=== PATIENT | male | born 1965 | race Caucasian/White ===

== ENCOUNTER 2019-05-18 00:30 | Emergency (ER) | payer BC ==
[2019-05-18] MEDS ORDERED: Cephalexin 500 MG Cap PO ONE (01:00)
--- NOTE | 2019-05-18 01:12 | EDM.PDOC ---
ED HPI GENERAL MEDICAL PROBLEM - General Stated Complaint: RT THUMB INFECTED Time Seen by Provider: 05/18/19 00:55 Source of Information: Reports: EMS History Limitations: Reports: No Limitations - History of Present Illness INITIAL COMMENTS - FREE TEXT/NARRATIVE: Patient is a 53 yO WM who presented to the ED because of a tiny abscess on the rt thumb. He took off a eliseo torn which puncture the thumb 4 days ago and now it 's turning red and with pus.There is no fever or chills. - Related Data Allergies Allergy/AdvReac Type Severity Reaction Status Date / Time No Known Allergies Allergy Verified 05/18/19 01:03 Home Meds: Home Meds Cephalexin [Keflex] 500 mg PO TID #30 capsule 05/18/19 [Rx] ED ROS GENERAL - Review of Systems Review Of Systems: See Below Constitutional: Reports: No Symptoms HEENT: Reports: No Symptoms Respiratory: Reports: No Symptoms Cardiovascular: Reports: No Symptoms Endocrine: Reports: No Symptoms GI/Abdominal: Reports: No Symptoms : Reports: No Symptoms Musculoskeletal: Reports: No Symptoms Skin: Reports: Other (erythema rt thumb with small abscess) Neurological: Reports: No Symptoms Psychiatric: Reports: No Symptoms ED EXAM, SKIN/RASH Exam: See Below Exam Limited By: No Limitations General Appearance: Alert, WD/WN, No Apparent Distress Ears: Normal External Exam, Normal Canal, Hearing Grossly Normal, Normal TMs Nose: Normal Inspection, Normal Mucosa, No Blood Throat/Mouth: Normal Inspection, Normal Lips, Normal Teeth, Normal Gums, Normal Oropharynx, Normal Voice, No Airway Compromise Head: Atraumatic, Normocephalic Neck: Normal Inspection, Supple, Non-Tender, Full Range of Motion Respiratory/Chest: No Respiratory Distress, Lungs Clear, Normal Breath Sounds, No Accessory Muscle Use, Chest Non-Tender Cardiovascular: Normal Peripheral Pulses, Regular Rate, Rhythm, No Edema, No Gallop, No JVD, No Murmur, No Rub GI/Abdominal: Normal Bowel Sounds, Soft, Non-Tender, No Organomegaly, No Distention, No Abnormal Bruit, No Mass (Male) Exam: No Hernia, Normal Inspection, Normal Prostate, Circumcised Rectal (Males) Exam: Normal Exam, Normal Rectal Tone, Prostate Normal Back Exam: Normal Inspection, Full Range of Motion, NT Extremities: Normal Inspection, Normal Range of Motion, Non-Tender, No Pedal Edema, Normal Capillary Refill Neurological: Alert, Oriented, CN II-XII Intact, Normal Cognition, Normal Gait, Normal Reflexes, No Motor/Sensory Deficits Psychiatric: Normal Affect, Normal Mood Skin: Warm, Other (erythema rt thumb with tiny abscess) Lymphatic: No Adenopathy Course - Orders/Labs/Meds Meds: Medications Discontinued Medications Generic Name Dose Route Start Last Admin Trade Name Freq PRN Reason Stop Dose Admin Cephalexin 500 mg 05/18/19 01:00 Keflex PO 05/18/19 01:01 ONETIME ONE Departure - Departure Time of Disposition: 00:55 Disposition: Home, Self-Care 01 Clinical Impression: Cellulitis - Discharge Information Prescriptions: Cephalexin [Keflex] 500 mg PO TID #30 capsule Instructions: Cellulitis, Adult Referrals: Jamil Platt PA [Primary Care Provider] - Additional Instructions: please read discharge instructions on cellulitis/skin infection soak in lukewarm water with a little bit of salt to drain the pass take ibuprofen 800 mg with tylenol 1000 mg every 8 hours as needed for pain follow up as needed
== END 2019-05-18 01:11 | disposition home or self-care (01) ==
LOC: FB.ED 00:30
DX: L03.011 Cellulitis of right finger (principal)
CPT/HCPCS: 99282; A9270